=== PATIENT | female | born 1970 | race Caucasian/White ===

== ENCOUNTER 2018-01-16 20:39 | Observation (INO) | payer OTHER ==
--- NOTE | 2018-01-16 20:53 | EDPHY ---
H & P Stated Complaint: LEFT ELBOW AND CALF SWELLING Time Seen by Provider: 01/16/18 20:53 - Personal History LMP (Females 10-55): 8-14 Days Ago Current Tetanus/Diphtheria Vaccine: Yes Current Tetanus Diphtheria and Acellular Pertussis (TDAP): Yes Tetanus Vaccine Date: 2010 - Medical/Surgical History Hx Asthma: No Hx Chronic Respiratory Disease: No Hx Diabetes: No Hx Cardiac Disease: No Hx Renal Disease: No Hx Cirrhosis: No Hx Alcoholism: No Hx HIV/AIDS: No Hx Splenectomy or Spleen Trauma: No Other PMH: KNEE SURGERY X 5 - Social History Smoking Status: Never smoked Constitutional: Initial Vital Signs Temperature (C) 36.7 C 01/16/18 20:42 Heart Rate 86 01/16/18 20:42 Respiratory Rate 16 01/16/18 20:42 Blood Pressure 117/79 01/16/18 20:42 O2 Sat (%) 97 01/16/18 20:42 O2 Delivery Mode Room Air Allergies/Adverse Reactions: No Known Allergies Allergy (Verified 03/17/12 10:28) Home Medications: Medication Instructions Recorded NK [No Known Home Meds] 01/16/18 Medical Decision Making - Diagnostics Imaging Results: Imaging Impressions Extremity Venous Study 01/16/18 21:07 Impression: No deep venous thrombosis left leg. Findings and recommendations discussed with Emergency Department physician, Dax Da Silva MD at 22:08 hour, 01/16/2018. Final report concurs with initial preliminary interpretation. Imaging: Discussed imaging studies w/ scallop cutter machine Radiologist, I viewed and interpreted images myself ED Course/Re-evaluation: CHIEF COMPLAINT: Left-sided muscle pain and swelling, rash HISTORY OF PRESENT ILLNESS: The patient is a 47 y/o female with a history of numerous knee surgeries complaining of left-sided extremity swelling. She is currently 2 weeks post-op from right knee surgery and had no complications after the surgery. Last night she developed pain and swelling in her left leg. Today she developed a rash on her left lower leg as well as pain and swelling in her left elbow, forearm, and hand. In the last several hours she also developed similar pain in her right arm associated with the rash. She was on Doxycycline and Lovenox after the surgery. On , 2 days ago, she stopped taking Lovenox and stated taking Aspirin. Denies headache, chest pain, shortness of breath, abdominal pain, urinary or bowel complaints, numbness, paresthesias, fever. REVIEW OF SYSTEMS: A 10 point review of systems was performed and is negative with the exception of the elements mentioned in the history of present illness. PHYSICAL EXAM: HR, BP, O2 Sat, RR. Temp noted General Appearance: Alert, well hydrated, appropriate, and non-toxic appearing. Head: Atraumatic without scalp tenderness or obvious injury Eyes: Pupils equal, round, reactive to light and accommodation, EOMI, no trauma , no injection. Ears: Clear bilaterally, no perforation, normal landmarks Nose: Atraumatic, no rhinorrhea, clear. Throat: There is no erythema or exudates, no lesions, normal tonsils, mucus membranes moist. Neck: Supple, 2+ carotid upstroke, nontender, no lymphadenopathy. Respiratory: No retractions, no distress, no wheezes, and no accessory muscle use. Lungs are clear to auscultation bilaterally. Cardiovascular: Regular rate and rhythm, no murmurs, rubs, or gallops. Bilateral carotid, radial, dorsalis pedis, and posterior tibial pulses intact. Good capillary refill all extremities. Gastrointestinal: Abdomen is soft, nontender, non-distended, no masses, no rebound, no guarding, no peritoneal signs. Musculoskeletal: Muscular pain in extremities. Normal active ROM of all extremities, atraumatic. Neurological: Alert, appropriate, and interactive. The patient has normal DTRs and non-focal cranial nerves, motor, sensory, and cerebellar exam. Skin: Scattered non-blanching lesions that appear to be petechial hemorrhages on her extremities, good turgor, no nodules on palpation. Past medical history: Denies Past surgical history: Knee surgery x 5 Family history: Denies Social history: at bedside, lives in [place], not employed DIAGNOSTICS/PROCEDURES/CRITICAL CARE TIME: Lower extremity US: Negative DIFFERENTIAL DIAGNOSIS: The differential diagnosis for the patient's leg swelling and pain included but was not limited to myositis, vasculitis, hypoalbuminemia, venous stasis, trauma , and DVT. MEDICAL DECISION MAKING: The patient is a 47 y/o female with a history of numerous knee surgeries presenting left-sided extremity swelling and muscular pain. She is 2 weeks post- op from right knee pain and has been on Lovenox, Aspirin, and Doxycycline. On exam she has scattered non-blanching lesions that appear to be petechial hemorrhages on her extremities. The muscular pain is consistent with myositis vs. vasculitis. Labs and lower extremity US ordered. 9: I spoke with Dr. Echevarria, radiologist, who reports a negative lower extremity US. Her labs are unremarkable. 2215: Reassessed patient and discussed laboratory and imaging findings. Upon reexamination the swelling in her left arm is increasing. She will need to be admitted for her symptoms; patient is comfortable with this plan. 10mg IV Decadron administered. 2224: I consulted with the hospitalist service; Dr. Esqueda accepts admission of this patient. - Data Points Laboratory Results: Laboratory Results 01/16/18 21:20 01/16/18 21:20 01/16/18 01/16/18 01/16/18 21:20 21:20 21:06 WBC 6.55 10^3/uL 10^3/uL (3.80-9.50) RBC 4.24 10^6/uL 10^6/uL (4.18-5.33) Hgb 12.5 g/dL L g/dL (12.6-16.3) Hct 37.5 % L % (38.0-47.0) MCV 88.4 fL fL (81.5-99.8) MCH 29.5 pg pg (27.9-34.1) MCHC 33.3 g/dL g/dL (32.4-36.7) RDW 13.2 % % (11.5-15.2) Plt Count 428 10^3/uL H 10^3/uL (150-400) MPV 9.6 fL fL (8.7-11.7) Neut % (Auto) 60.5 % % (39.3-74.2) Lymph % (Auto) 28.7 % % (15.0-45.0) [place] % (Auto) 6.1 % % (4.5-13.0) Eos % (Auto) 3.1 % % (0.6-7.6) Baso % (Auto) 1.4 % % (0.3-1.7) Nucleat RBC Rel Count 0.0 % % (0.0-0.2) Absolute Neuts (auto) 3.97 10^3/uL 10^3/uL (1.70-6.50) Absolute Lymphs (auto) 1.88 10^3/uL 10^3/uL (1.00-3.00) Absolute Monos (auto) 0.40 10^3/uL 10^3/uL (0.30-0.80) Absolute Eos (auto) 0.20 10^3/uL 10^3/uL (0.03-0.40) Absolute Basos (auto) 0.09 10^3/uL 10^3/uL (0.02-0.10) Absolute Nucleated RBC 0.00 10^3/uL 10^3/uL (0-0.01) Immature Gran % 0.2 % % (0.0-1.1) Immature Gran # 0.01 10^3/uL 10^3/uL (0.00-0.10) ESR 33 MM/HR H MM/HR (0-20) PT 13.6 SEC SEC (12.0-15.0) INR 1.02 (0.83-1.16) APTT 29.1 SEC SEC (23.0-38.0) Sodium 140 mEq/L mEq/L (135-145) Potassium 3.9 mEq/L mEq/L (3.3-5.0) Chloride 103 mEq/L mEq/L (97-110) Carbon Dioxide 24 mEq/l mEq/l (22-31) Anion Gap 13 mEq/L mEq/L (8-16) BUN 12 mg/dL mg/dL (7-23) Creatinine 0.6 mg/dL mg/dL (0.6-1.0) Estimated GFR > 60 Glucose 98 mg/dL mg/dL (70-100) Calcium 9.3 mg/dL mg/dL (8.5-10.4) Total Bilirubin 0.4 mg/dL mg/dL (0.1-1.4) Conjugated Bilirubin 0.1 mg/dL mg/dL (0.0-0.5) Unconjugated Bilirubin 0.3 mg/dL mg/dL (0.0-1.1) AST 21 IU/L IU/L (14-46) ALT 27 IU/L IU/L (9-52) Alkaline Phosphatase 49 IU/L IU/L (38-126) C-Reactive Protein < 5.0 mg/L mg/L (<10.0) Total Protein 6.6 g/dL g/dL (6.3-8.2) Albumin 3.8 g/dL g/dL (3.5-5.0) Departure - Departure Disposition: Home, Routine, Self-Care Clinical Impression: Petechial rash, Left arm swelling, Vasculitis Myositis Qualifiers: Myositis type: unspecified type Myositis location: multiple sites Qualified Code(s): M60.9 - Myositis, unspecified Condition: Good Instructions: Acute Rash (ED), Musculoskeletal Pain (ED) Referrals: NONE *PRIMARY CARE P,. [Primary Care Provider] - As per Instructions Report Scribed for: Dax Da Silva Report Scribed by: Phuong Martínez Date of Report: 01/16/18 Time of Report: 21:09
[2018-01-16 21:28] LABS: PLATELET COUNT 428 10^3/uL (150-400)
[2018-01-16 22:07] LABS: INR 1.02 (0.83-1.16); PROTIME(PATIENT) 13.6 SEC (12.0-15.0)
[2018-01-16] MEDS ORDERED: DEXAMETHASONE 10 MG/ML VIAL IVP ONE (22:23)
[2018-01-16] MEDS ORDERED: ONDANSETRON DISINTEGRATING 4 MG TAB PO PRN (22:28)
[2018-01-16] MEDS ORDERED: ACETAMINOPHEN 325 MG TAB PO PRN (22:28)
[2018-01-16] MEDS ORDERED: ONDANSETRON 4 MG/2 ML VIAL IVP PRN (22:28)
[2018-01-16 22:50] LABS: CREATINE KINASE 54 IU/L (0-156)
--- NOTE | 2018-01-16 23:04 | PDGENHP ---
History and Physical - Chief Complaint Swelling, rash - History of Present Illness 47 yo F w/ recent R knee surgery presents with widespread swelling and rash. Patient underwent a R knee procedure including bone grafting on 12/[address] Rodney in [place]. She did well for the last 2 weeks until yesterday when when she began to notice mild swelling and rash on her LLE. Her surgery was on her R knee. Swelling then proceeded to involve her LUE as well. During our conversation she tells me she can also note subtle swelling in her RUE and RLE. The swelling on her R dorsal hand is particularly prominent. Along with the swelling she has noticed a punctate, erythematous rash involving all her extremities. This is most prominent in her LLE. Of note, she took Lovenox daily after the procedure for DVT prophylaxis. On she began to take a daily aspirin for this. Work-up in the ED has been mostly unremarkable. Case discussed with ED physician Dr. Da Silva. Records reviewed in EMR. History Information - Allergies/Home Medication List Allergies/Adverse Reactions: No Known Allergies Allergy (Verified 03/17/12 10:28) Home Medications: NK [No Known Home Meds] 01/16/18 [Last Taken Unknown] I have personally reviewed and updated: family history, medical history - Past Medical History no pertinent PMH - Surgical History Additional surgical history: Several previous R knee surgeries, most recent 12/[address] Rodney - Family History Additional family history: Mother has RA - Social History Smoking Status: Never smoked Review of Systems Review of Systems: ROS: 10pt was reviewed & negative except for what was stated in HPI & below Physical Exam Physical Exam: Temp Pulse Resp BP Pulse Ox 36.7 C 80 16 108/79 97 01/16/18 20:42 01/16/18 22:41 01/16/18 22:41 01/16/18 22:41 01/16/18 22:41 Constitutional: no apparent distress, not in pain Eyes: PERRL, EOMI Ears, Nose, Mouth, Throat: moist mucous membranes, no oral mucosal ulcers Cardiovascular: regular rate and rhythym, no murmur, rub, or gallop Respiratory: no respiratory distress, clear to auscultation Gastrointestinal: normoactive bowel sounds, soft, non-tender abdomen Skin: warm, rash (Punctate, erythematous, slightly raised lesions all 4 extremities) Musculoskeletal: full muscle strength, joint effusion (L knee, L hand) Neurologic: AAOx3, CN II-XII Intact Psychiatric: interacting appropriately, not anxious Lab Data & Imaging Review 01/16/18 21:20 01/16/18 21:20 WBC 6.55 10^3/uL (3.80-9.50) 01/16/18 21:20 RBC 4.24 10^6/uL (4.18-5.33) 01/16/18 21:20 Hgb 12.5 g/dL (12.6-16.3) L 01/16/18 21:20 Hct 37.5 % (38.0-47.0) L 01/16/18 21:20 MCV 88.4 fL (81.5-99.8) 01/16/18 21:20 MCH 29.5 pg (27.9-34.1) 01/16/18 21:20 MCHC 33.3 g/dL (32.4-36.7) 01/16/18 21:20 RDW 13.2 % (11.5-15.2) 01/16/18 21:20 Plt Count 428 10^3/uL (150-400) H 01/16/18 21:20 MPV 9.6 fL (8.7-11.7) 01/16/18 21:20 Neut % (Auto) 60.5 % (39.3-74.2) 01/16/18 21:20 Lymph % (Auto) 28.7 % (15.0-45.0) 01/16/18 21:20 [place]rus % (Auto) 6.1 % (4.5-13.0) 01/16/18 21:20 Eos % (Auto) 3.1 % (0.6-7.6) 01/16/18 21:20 Baso % (Auto) 1.4 % (0.3-1.7) 01/16/18 21:20 Nucleat RBC Rel Count 0.0 % (0.0-0.2) 01/16/18 21:20 Absolute Neuts (auto) 3.97 10^3/uL (1.70-6.50) 01/16/18 21:20 Absolute Lymphs (auto) 1.88 10^3/uL (1.00-3.00) 01/16/18 21:20 Absolute Monos (auto) 0.40 10^3/uL (0.30-0.80) 01/16/18 21:20 Absolute Eos (auto) 0.20 10^3/uL (0.03-0.40) 01/16/18 21:20 Absolute Basos (auto) 0.09 10^3/uL (0.02-0.10) 01/16/18 21:20 Absolute Nucleated RBC 0.00 10^3/uL (0-0.01) 01/16/18 21:20 Immature Gran % 0.2 % (0.0-1.1) 01/16/18 21:20 Immature Gran # 0.01 10^3/uL (0.00-0.10) 01/16/18 21:20 ESR 33 MM/HR (0-20) H 01/16/18 21:20 PT 13.6 SEC (12.0-15.0) 01/16/18 21:06 INR 1.02 (0.83-1.16) 01/16/18 21:06 APTT 29.1 SEC (23.0-38.0) 01/16/18 21:06 Sodium 140 mEq/L (135-145) 01/16/18 21:20 Potassium 3.9 mEq/L (3.3-5.0) 01/16/18 21:20 Chloride 103 mEq/L (97-110) 01/16/18 21:20 Carbon Dioxide 24 mEq/l (22-31) 01/16/18 21:20 Anion Gap 13 mEq/L (8-16) 01/16/18 21:20 BUN 12 mg/dL (7-23) 01/16/18 21:20 Creatinine 0.6 mg/dL (0.6-1.0) 01/16/18 21:20 Estimated GFR > 60 01/16/18 21:20 Glucose 98 mg/dL (70-100) 01/16/18 21:20 Calcium 9.3 mg/dL (8.5-10.4) 01/16/18 21:20 Total Bilirubin 0.4 mg/dL (0.1-1.4) 01/16/18 21:20 Conjugated Bilirubin 0.1 mg/dL (0.0-0.5) 01/16/18 21:20 Unconjugated Bilirubin 0.3 mg/dL (0.0-1.1) 01/16/18 21:20 AST 21 IU/L (14-46) 01/16/18 21:20 ALT 27 IU/L (9-52) 01/16/18 21:20 Alkaline Phosphatase 49 IU/L (38-126) 01/16/18 21:20 Creatine Kinase 54 IU/L (0-156) 01/16/18 21:20 C-Reactive Protein < 5.0 mg/L (<10.0) 01/16/18 21:20 Total Protein 6.6 g/dL (6.3-8.2) 01/16/18 21:20 Albumin 3.8 g/dL (3.5-5.0) 01/16/18 21:20 Imaging Review: Imaging Impressions Extremity Venous Study 01/16/18 21:07 Impression: No deep venous thrombosis left leg. Findings and recommendations discussed with Emergency Department physician, Dax Da Silva MD at 22:08 hour, 01/16/2018. Final report concurs with initial preliminary interpretation. Assessment & Plan Assessment: 47 yo F presents with widespread swelling and rash after recent R knee surgery. Plan: 1. Rash, swelling - Patient presents with 2 days of widespread swelling and rash. Widespread nature of her condition is suspicious for systemic allergic response, possibly to the aspirin she started taking 2 days before presentation. Less likely would be a response to the bone graft placed in her R knee on 12/31 noting there is no local reaction in this area. - Admit for observation - S/p Dexamethasone in the ED - Hold aspirin - Lovenox ordered for DVT ppx, would discuss with patient's orthopedic surgeon ( Dr. Rodney) about length of prophylaxis needed - Consider dermatology consult if worsening Diet - Regular Code - Full Ppx - LMWH Dispo - Admit under observation status
[2018-01-17 05:32] LABS: PLATELET COUNT 407 10^3/uL (150-400)
[2018-01-17 08:38] VITALS: BP 107/75
[2018-01-17] MEDS ORDERED: ENOXAPARIN 40 MG/0.4 ML SYR SC SCH (09:00)
--- NOTE | 2018-01-17 11:30 | GDS ---
[f rep st] DISCHARGE SUMMARY DISCHARGE DIAGNOSIS: Rash. PHYSICAL EXAM: GENERAL: The patient is alert. VITAL SIGNS: Afebrile at 36.6 , pulse is 81, respiratory rate 16, blood pressure is 107/75. She is saturating 98% on room air. I have seen and evaluated the patient on the day of discharge. HOSPITAL COURSE: The patient is a 47-year-old female, who recently had a right knee surgery. She was instructed to initiate aspirin therapy 2 days prior to presenting to the hospital. Her presentation included rash with swelling suspicious for systemic allergic response. She has responded well to dexamethasone. Her aspirin has been discontinued, and she will continue Lovenox injections in the outpatient setting for DVT prophylaxis until otherwise instructed by her orthopedic surgeon. There are no pending studies. DISCHARGE MEDICATIONS: I have provided her a prescription for Lovenox. FOLLOWUP: Will be with her orthopedic surgeon at [facility]. I reviewed the disposition with the patient's nurse. /[id number]/MODL MTDD
== END 2018-01-17 11:38 | disposition home or self-care (01) ==
LOC: F3E 23:32
PROVIDERS: ADMIT Student in an Organized Health Care Education/Training Program; ATTEND Internal Medicine
DX: L76.82 Other postprocedural complications of skin and subcutaneous tissue (principal); R21 Rash and other nonspecific skin eruption; M25.561 Pain in right knee; M25.522 Pain in left elbow
CPT/HCPCS: 93971; 96372; 96374; 99285; G0378; J1100; J1650